=== PATIENT | female | born 1990 ===

== ENCOUNTER 2017-08-17 05:33 | Inpatient (IN) | payer MEDICAID, OTHER ==
--- NOTE | 2017-08-17 06:07 | OBADHP ---
Datetime: 08/17/2017 06:01 IP Adm Impression Other: Placenta previa- Complete Admit Comment, IP Provider: at 37=weeks jennifer for c/s for low lyinbg placente. c/o pain. no cbvb, lof,+fm obhx 1 x still , 1 x sab pmh den med pnv all nkda psh biosp soch de a/p at 37+weeks for c/s admit to l7d npo/ivf labs pain ma or aware skin abs dr lyons will take consent Pelvic Type - PN: Adequate Extremities - PN: Normal Abdomen - PN: Normal Back - PN: Normal Breast - PN: Normal Lungs - PN: Normal Heart - PN: Normal Thyroid - PN: Normal Neurologic - PN: Normal HEENT - PN: Normal General - PN: Normal Presentation-Admit: Vertex FHR - Baseline A Provider: 120 Membranes, Provider: Intact Contraction Comments Provider: none Gestation - Est Wks by US: 37.5wks Vital Signs Provider: Reviewed; Within Normal Limits IP Chief Complaint: Maternal discomfort NICHD Variability Prov Fetus A: Moderate 6-25bpm NICHD Accel Fetus A IP Provider: [id number] FHR Category Provider Fetus A: Category I Genitourinary Exam: Normal DTRs - PN: Normal EGA AdmitDate IP: 37.5 IP Adm Impression: Term, intrauterine IP Admit Plan: Admit to unit; Initiate Section protocol
[2017-08-17] MEDS ORDERED: cefOXitin IV 2 gm in Dextrose 2 GM/50 ML BAG IVPB ONE (06:19)
[2017-08-17] MEDS ORDERED: Sodium Citrate/Citric Acid 15 ml Sol PO ONE (06:19)
[2017-08-17 06:20] LABS: BASO # 0.1 K/uL (0.0-0.2); BASO % 0.5 % (0.0-2.0); EOS # 0.1 K/uL (0.0-0.7); EOS % 1.3 % (0.0-4.0); HEMATOCRIT 36.2 % (34.0-47.0); LYMPH # 2.2 K/uL (1.0-4.3); LYMPH % 22.7 % (20.0-40.0); MEAN CELL VOLUME 79.8 fL (81.0-99.0); MEAN CORPUSCULAR HEMOGLOBIN 26.3 pg (27.0-31.0); MEAN PLATELET VOLUME 9.6 fL (7.2-11.7); MONO # 0.6 K/uL (0.0-0.8); MONO % 6.2 % (0.0-10.0); WHITE BLOOD COUNT 9.8 K/uL (4.8-10.8)
[2017-08-17] MEDS ORDERED: Lactated Ringer's 1,000 ML IV SCH (06:30)
[2017-08-17 06:33] LABS: ALB/GLOB RATIO 0.9 (1.0-2.1); ALKALINE PHOSPHATASE 213 U/L (38-126); ALT/SGPT 26 U/L (9-52); AST/SGOT 17 U/L (14-36); BILIRUBIN,TOTAL 0.3 mg/dL (0.2-1.3); BLOOD UREA NITROGEN 9 mg/dL (7-17); CALCIUM 8.6 mg/dl (8.6-10.4); CARBON DIOXIDE 18 mmol/L (22-30); CHLORIDE 105 mmol/L (98-107); GFR AFRICAN-AMERICAN > 60; GLUCOSE,RANDOM 79 mg/dL (65-105); POTASSIUM 3.8 mmol/L (3.6-5.2); SODIUM 136 mmol/L (132-148); TOTAL PROTEIN 7.8 g/dL (6.3-8.3)
[2017-08-17 06:37] LABS: RBC URINE 7 /hpf (0-3); URINE BACTERIA OCC (<OCC); URINE BILIRUBIN NEGATIVE (NEGATIVE); URINE BLOOD NEGATIVE (NEGATIVE); URINE COLOR Yellow (YELLOW); URINE GLUCOSE (UA) NORMAL (Normal); URINE KETONE TRACE mg/dL (NEGATIVE); URINE LEUKOCYTE ESTERASE 3+ Leu/uL (Negative); URINE PROTEIN 1+ mg/dL (NEGATIVE); URINE UROBILINOGEN NORMAL mg/dL (0.2-1.0); WBC URINE 33 /hpf (0-5)
[2017-08-17] MEDS ORDERED: Sodium Citrate/Citric Acid 15 ml Sol ONE (06:59)
[2017-08-17] MEDS ORDERED: Morphine 1 mg/ml preservative-free Inj(Duramorph) ONE (07:23)
[2017-08-17] MEDS ORDERED: cefOXitin 2 GM in Dextrose 5% In Water 100 ML IV ONE (08:00)
[2017-08-17] MEDS ORDERED: Oxycodone/Acetaminophen 5/325 mg Tab PO PRN ×2 (08:56)
[2017-08-17] MEDS ORDERED: Lactated Ringer's 500 ML IV ONE (09:02)
[2017-08-17] MEDS ORDERED: DiphenhydrAMINE 50 mg/ml Inj IVP PRN (09:04)
[2017-08-17] MEDS ORDERED: Naloxone 0.4 mg/ml Inj (Adult) IVP PRN (09:04)
--- NOTE | 2017-08-17 11:55 | PCM.SURG1 ---
Surgeon's Initial Post Op Note - Surgeon's Notes Surgeon: Dr Flores Nonprofit Fundraiser: Dr Sainz, Bailey Carrington. Type of Anesthesia: Spinal Anesthesia Administered By: Dr John Thurman Pre-Operative Diagnosis: IUP at 37+ Weeks. Complete Placenta Previa Operative Findings: Live male with BW of 7Ibs 7 ozs and scores of 9 and 9, Nuchal chord X2 ,Placenta Previa, Clear amniotic fluid, Normal looking uterus,fallopian tubes and ovaries. IVFluids- 1800mls. EBL- 550mls. Urine output 250mls Post-Operative Diagnosis: Same as Preop Diagnosis Operation Performed: Primary Low Transverse Section. Specimen/Specimens Removed: Placenta Estimated Blood Loss: EBL {In ML}: 550 Blood Products Given: N/A Date of Surgery/Procedure: 08/17/17 Time of Surgery/Procedure: 08:40
[2017-08-17] MEDS: cefOXitin IV 2 gm in Dextrose 2 GM/50 ML BAG IVPB SCH ×2 (15:33→23:14)
[2017-08-17] MEDS: Simethicone 80 mg Chewtab PO SCH ×2 (15:34→21:39)
--- NOTE | 2017-08-17 20:01 | OP ---
PROCEDURE DATE: 08/17/2017 PREOPERATIVE DIAGNOSIS: Intrauterine at 37 weeks and 3 days with a complete placenta previa. POSTOPERATIVE DIAGNOSIS: Intrauterine at 37 weeks and 3 days with a complete placenta previa. PROCEDURE DONE: Primary low-transverse section done on 08/17/2017. SURGEON: Dr. Flores. ASSISTANTS: Dr. Sainz, Derrell Joshua and Radha Gonzalez. Assistance to this procedure was needed for exposure of tissues and help in the conduct of the surgery. The assistants remained with the surgery throughout its entire length. TYPE OF ANESTHESIA: General endotracheal. ANESTHESIA ADMINISTERED BY: Dr. John Thurman. OPERATIVE FINDINGS: A live male infant with weight of 7 pounds 7 ounces and scores of 9 in the 1st and 5th minute respectively. There was a loose and tight nuchal cord x2 around the neck. There was placenta previa covering the lower pole of the uterus and extending to the anterior wall of the uterus. The amniotic fluid was normal and clear. The uterus as well as both fallopian tubes and ovaries appeared normal. IV FLUID INTAKE: 1800 mL. ESTIMATED BLOOD LOSS: 550 mL. URINE OUTPUT: 250 mL of clear urine. DESCRIPTION OF PROCEDURE: After obtaining informed consent, the patient was sent to the OR with IV running and Alicea catheter in place. The patient was sat on the OR table and after adequate spinal anesthesia was repositioned in the supine position with a left lateral tilt. The patient was then prepped and draped in the usual sterile fashion. A Pfannenstiel skin incision was made with a scalpel about 2.5 cm from the pubic symphysis and the incision was continued with a Bovie device through the subcutaneous tissues, so the rectus fascia was identified. A transverse incision was made in the rectus fascia and this incision was extended to both sides by means of a Oliva scissors. The rectus fascia was lifted off the underlying rectus muscles both superiorly and inferiorly by means of a blunt dissection and sharp dissection with Oliva scissors. The rectus muscle was in the midline to expose the peritoneum which was tented between two Neris clamps and sharply entered and with good visualization of the bladder. Once the abdominal cavity was entered, the above findings were noted. The vesicouterine fold of peritoneum was identified and incised in a transverse manner. This was also retracted inferiorly to expose the lower uterine segment. There were some dilated veins in the lower segment and a low-transverse incision was made above the dilated vein in the lower uterine segment. The incision was extended to both sides and through the myometrial layer, so the amniotic membranes were identified. Amniotic membranes were ruptured with a pickup forceps and the baby which was in cephalic presentation was delivered after reduction of a nuchal cord x2. The umbilical cord was clamped and cut and the baby was given to the nurse. The umbilical cord blood was obtained and the placenta was manually removed from the uterine cavity. The bleeding points in the lower uterine segments were clamped with T-clamps and these were included in the uterine repair. The uterus was then brought out of the abdominal cavity and the uterine cavity cleaned off all debris using dry laparotomy pads. The uterine incision was then closed in two layers using Vicryl #0. The first layer in a running locked fashion and the second layer in a running fashion imbricating the first layer. Once the procedure had been concluded and hemostasis assured, the pelvis was irrigated with warm normal saline. Hemostasis was reassured. Attention was then turned onto the anterior abdominal wall which was closed in layers with 2-0 Vicryl for the peritoneum and the rectus muscles. The rectus fascia was brought together by means of #0 Vicryl. The subcutaneous tissues were brought together using #2-0 plain catgut. The skin was closed in a subcuticular fashion using #4-0 Vicryl. All counts of instruments, laparotomy pads and needles used were correct x3 and the patient was sent to the recovery room awake and in stable condition. Manuel Flores MD
[2017-08-18 07:37] LABS: BASO % 0.3 % (0.0-2.0); EOS # 0.1 K/uL (0.0-0.7); EOS % 1.1 % (0.0-4.0); LYMPH # 1.5 K/uL (1.0-4.3); LYMPH % 16.9 % (20.0-40.0); MEAN CELL VOLUME 79.9 fL (81.0-99.0); MEAN CORPUSCULAR HEMOGLOBIN 26.5 pg (27.0-31.0); MEAN CORPUSCULAR HGB CONC 33.2 g/dL (33.0-37.0); MEAN PLATELET VOLUME 9.6 fL (7.2-11.7); MONO # 0.5 K/uL (0.0-0.8); MONO % 5.5 % (0.0-10.0); RED CELL DISTRIBUTION WIDTH 15.9 % (11.5-14.5)
[2017-08-18] MEDS: Simethicone 80 mg Chewtab PO SCH ×5 (10:12→21:33)
[2017-08-19 08:45] LABS: BASO % 0.4 % (0.0-2.0); EOS # 0.3 K/uL (0.0-0.7); EOS % 2.9 % (0.0-4.0); HEMATOCRIT 32.5 % (34.0-47.0); LYMPH # 1.7 K/uL (1.0-4.3); LYMPH % 17.9 % (20.0-40.0); MEAN CELL VOLUME 80.3 fL (81.0-99.0); MEAN CORPUSCULAR HEMOGLOBIN 26.6 pg (27.0-31.0); MEAN CORPUSCULAR HGB CONC 33.1 g/dL (33.0-37.0); MEAN PLATELET VOLUME 9.4 fL (7.2-11.7); MONO # 0.4 K/uL (0.0-0.8); MONO % 4.6 % (0.0-10.0); RED CELL DISTRIBUTION WIDTH 16.3 % (11.5-14.5); WHITE BLOOD COUNT 9.7 K/uL (4.8-10.8)
[2017-08-19] MEDS ORDERED: Influenza Vaccine 60 mcg/0.5 mL SYR (4YR UP) IM ONE (09:11)
[2017-08-19] MEDS: Simethicone 80 mg Chewtab PO SCH ×4 (09:37→21:59)
[2017-08-20 08:10] LABS: BASO % 0.5 % (0.0-2.0); EOS # 0.4 K/uL (0.0-0.7); EOS % 4.7 % (0.0-4.0); HEMATOCRIT 31.9 % (34.0-47.0); LYMPH # 2.2 K/uL (1.0-4.3); LYMPH % 26.2 % (20.0-40.0); MEAN CELL VOLUME 80.3 fL (81.0-99.0); MEAN CORPUSCULAR HEMOGLOBIN 26.7 pg (27.0-31.0); MEAN CORPUSCULAR HGB CONC 33.2 g/dL (33.0-37.0); MEAN PLATELET VOLUME 9.3 fL (7.2-11.7); MONO # 0.5 K/uL (0.0-0.8); MONO % 5.7 % (0.0-10.0); RED CELL DISTRIBUTION WIDTH 16.5 % (11.5-14.5); WHITE BLOOD COUNT 8.3 K/uL (4.8-10.8)
[2017-08-20] MEDS: Simethicone 80 mg Chewtab PO SCH ×2 (09:15→13:13)
--- NOTE | 2017-08-20 10:08 | OBPPN ---
Datetime: 08/19/2017 10:07 PP Pain Prov: Within normal limits PP Nausea Prov: Denies PP Flatus Prov: Yes PP Breasts Prov: Normal PP Heart Prov: Normal PP Lungs Prov: Normal PP Abdomen/Uterus Prov: Normal PP Lochia Prov: Normal PP Vulva/Perineum Prov: Normal PP CVA Tenderness Prov: Normal PP Extremities Prov: Normal PP C/S Incision Prov: Normal Vital Signs Provider PP: Reviewed Datetime: 08/18/2017 07:28 PP BM Prov: No PP Progress Prov: Normal PP Comments Phys Exam Prov: Abdomen: Soft, appropriately tender, fundus is firm and below umbilicus PP Impression Prov: Normal progression PP Plan Prov: Continue present management PP Progress Note Prov: Patient was seen and examined at bedside. Patient reports that she us doing w ell and pain is well-controlled. Patient's allen catheter was discontinued this AM. Patient denies pa ssing flatus, bowel movement, fever, chills, nausea, vomiting, calf tenderness. Patient is breast fee ding. VS: BP: 99/76, HR:81, Temp: 98.1, I/O: 5500/2250 Physical examination: Gen:AAOx3, NAD Cardio: RRR, normal S1, S2 Pulm:CTA bilaterally Abdomen: Soft, appropriately tender, fundus is firm and below the umbilicus, incision is clean, dr y and intact Ext: No edema, no cyanosis and no clubbing Labs: 9.8>11.9/36.2<269 O positive, rubella immune A/P: 26 year old at 37 weeks, who is now , S/P Primary lower uterine transverse C-s ection due to partial placenta previa, POD#1 1. Stable, afebrile 2. Pain control: Motrin and percocet 3. allen discontinued: voiding trial 4. Monitior for bowel function 5. Encourage ambulation and hydration 6. Encourage 7. Male : Desires circumcision 8. Continue routine post- care 9. Plans discussed with attending Derrell Joshua DO, PGY-1
--- NOTE | 2017-08-20 10:12 | OBPPN ---
Datetime: 08/20/2017 10:12 PP Pain Prov: Within normal limits Datetime: 08/19/2017 10:07 PP Comments Phys Exam Prov: Abd: Soft, NT, BS- present Ut - firm, NT Incision: Clean and dry PP Progress Note Prov: s/p Section, POD#3 Clinically Stable Plan: continue care.
--- NOTE | 2017-08-20 10:16 | OBPPN ---
Datetime: 08/20/2017 10:12 PP Nausea Prov: Denies PP Flatus Prov: Yes PP Breasts Prov: Normal PP Heart Prov: Normal PP Lungs Prov: Normal PP Abdomen/Uterus Prov: Normal PP Lochia Prov: Normal PP Vulva/Perineum Prov: Normal PP CVA Tenderness Prov: Normal PP Extremities Prov: Normal PP Comments Phys Exam Prov: Abd: Soft , NT, BS - present Uterine: firm Incision- clean and dry PP Progress Note Prov: S/P Section, POD#3 CLinically stable, Plan: Discharge F/U in 2 weeks for wound check. IP PP Procedures: None Datetime: 08/19/2017 10:07 PP Impression Prov: Normal progression PP Plan Prov: Continue present management
--- NOTE | 2017-08-20 10:18 | OBPPN ---
Datetime: 08/20/2017 10:12 PP C/S Incision Prov: Normal Vital Signs Provider PP: Reviewed
--- NOTE | 2017-08-20 10:20 | OBDCSUM ---
Datetime: 08/20/2017 10:17 Discharged to, Provider: Home Follow up at, Provider: Dr Flores Disch Instr Activity: Normal activity Disch Instr Diet: Regular Discharge Instructions, Provider: Routine instructions given Discharge Diagnosis, Provider: Term Delivered Discharge Time: 08/20/2017 10:17 Follow up in weeks, Provider: 2 weeks Disch Referrals: None Contraception discussed, Prov: Yes Discharge Comment, Provider: S/P Primary Section, Clinically Stable Discharge Diagnosis Prov Other: S/P Primary Section, Clinically Stable
[2017-08-20 21:02] VITALS: BP 113/72; PULSE 84; RESP 18; TEMP 97.8; O2SAT 99
== END 2017-08-20 17:00 | disposition home or self-care (01) | DRG 766 ==
LOC: C.EROB 05:48 → C.4D 06:17 → C.4M 11:15
PROVIDERS: ADMIT Obstetrics & Gynecology; ATTEND Obstetrics & Gynecology
PROC: 10D00Z1 Extraction of Products of Conception, Low, Open Approach (ICD-10-PCS; principal; 2017-08-17)
DX: O44.43 Low lying placenta NOS or without hemorrhage, third trimester (principal); O69.1XX0 Labor and delivery complicated by cord around neck, with compression, not applicable or unspecified; Z3A.37 37 weeks gestation of pregnancy; Z37.0 Single live birth